=== PATIENT | female | born 1955 | race Caucasian/White ===

== ENCOUNTER 2019-10-05 17:31 | Inpatient (IN) ==
[2019-10-05] MEDS ORDERED: NS 1,000 ML IV ONE ×2 (18:30→18:37)
--- NOTE | 2019-10-05 18:52 | PROVIDER DOCUMENTATION ---
This chart was entered by Addie Daugherty Scribe, acting as scribe for Mandeep Singletary MD. HPI-General Adult - General Source: patient - History of Present Illness -Gen Adult Nature of Presenting Problems: 63 yowf presents w/family to er w/cc pt sent from Dr. Choudhary's office for hyponatremia. pt also c/o weakness, hoarseness, trouble ambulating and vomiting. pt has hx of pancreatic cancer w/mets to liver. last chemo was 09-22 and 2-. no diarrhea, fever or chills. Location of Pain/Injury: reports: generalized (weakness) Pain Radiation: reports: no radiation Quality of Pain: reports: none Severity: reports: moderate Onset/Duration: reports: other (today) Timing: reports: still present Context/Activities at Onset: reports: none Modifying Factors: improves with: other (weakness causes pt to be hoarse) Associated Symptoms: reports: vomiting, weakness, trouble walking, other (hyponatremia). denies: diarrhea, fever/chills Recently seen or treated by another doctor?: Yes <Mandeep Singletary - Last Filed: 10/05/19 18:52> <Devaughn Ireland - Last Filed: 10/05/19 19:56> - General Chief Complaint: Abnormal Lab[s] Stated Complaint: DR CHOUDHARY SENT PT Time Seen by Provider: 10/05/19 18:13 Allergies/Adverse Reactions: Patient Allergies Allergy/AdvReac Type Severity Reaction Status Date / Time No Known Allergies Allergy Unverified 07/03/15 19:02 Home Medications: Home Medication List Medication Instructions Recorded Confirmed Last Taken Type Albuterol Sulfate [Proair Hfa] 8.5 gm INH PRN PRN #1 [email or web address] 07/03/15 09/05/17 09/05/17 06:45 Rx Alprazolam 0.25 mg PO BID PRN 09/05/17 09/05/17 09/04/17 History Morphine Ir 15 mg PO DIRECTED PRN PRN 09/05/17 09/05/17 09/05/17 06:45 History Review of Systems - Adult - REVIEW OF SYSTEMS - ADULT Constitutional: reports: no symptoms reported. denies: chills, fever, night sweats Eyes: reports: no symptoms reported Ears, Nose, Mouth & Throat: reports: see HPI, hoarseness. denies: sinus problem, throat pain, throat swelling Cardiovascular: reports: no symptoms reported Respiratory: reports: no symptoms reported Gastrointestinal: reports: see HPI, vomiting. denies: diarrhea, difficulty swallowing, nausea Genitourinary: reports: no symptoms reported Musculoskeletal: reports: see HPI, muscle weakness (generalized), other (trouble ambulating) Integumentary: reports: no symptoms reported Neurological: reports: no symptoms reported Psychiatric: reports: no symptoms reported Endocrine: reports: no symptoms reported Hematologic/Lymphatic: reports: no symptoms reported Allergic/Immunologic: reports: no symptoms reported All Other Systems: Reviewed and Negative <Mandeep Singletary - Last Filed: 10/05/19 18:52> Past History - Adult - PAST MEDICAL HISTORY-ADULT Review of Records: reports: Nursing Assessment Review, Medications Reviewed, Social history reviewed & non-contributory. Major Childhood Illnesses: reports: denies history Cardiovascular: reports: denies history Respiratory: reports: asthma, bronchitis, COPD Gastrointestinal: reports: cancer (pancreatic w/mets to liver) Obstetrical/Gynecological: reports: denies history Genitourinary: reports: denies history Musculoskeletal: reports: denies history Neurological: reports: denies history Psychiatric: reports: denies history Endocrine/Immune: reports: denies history Other Conditions: reports: denies history - PRIOR SURGERIES/PROCEDURES Surgical/Procedure History: reports: appendectomy, cholecystectomy, hysterectomy , back/neck - PRIOR HOSPITALIZATIONS Prior Hospitalizations: reports: none - IMMUNIZATION STATUS Childhood Immunizations: See Nurse Assessment Flu Vaccine: See Nurse Assessment - FAMILY HISTORY Family History: reviewed, not pertinent - SOCIAL HISTORY Smoking: other (former smoker) Substance Use: none/never <Mandeep Singletary - Last Filed: 10/05/19 18:52> Physical Exam-General - PHYSICAL EXAM-ADULT Initial Vital Signs Reviewed: Yes - CONSTITUTIONAL General Appearance: alert, no apparent distress, cachetic. negative: anxious, lethargic, slow to respond - EYES Eyes: PERRL/EOMI, pale conjunctivae - HEAD, EARS, NOSE, MOUTH & THROAT HENMT: normocephalic/atraumatic, moist mucous membranes - NECK Neck: non-tender, full range of motion, supple, normal inspection - RESPIRATORY Respiratory: chest non-tender, lungs clear, normal breath sounds, other (pt has port rt parasternal). negative: crackles, rales, rhonchi - CARDIOVASCULAR Cardiovascular: normal peripheral pulses, regular rate, rhythm - GASTROINTESTINAL (ABDOMEN) Abdominal Exam: normal bowel sounds, distended, tenderness (RUQ on palp). negative: non tender, soft, guarding, rigid, rebound - MUSCULOSKELETAL Back Exam: normal inspection Extremity: normal range of motion, non-tender, no calf tenderness, normal capillary refill, pelvis stable, swelling (3-4+ nonpitting BLE). negative: normal inspection, deformity, erythema, inflammation - SKIN Integumentary: normal turgor, warm/dry, pallor (slight). negative: normal color, swelling, tenderness, warm - NEUROLOGIC Neurologic: grossly normal, no motor/sensory deficits - PSYCHIATRIC Psych/Mental Status: normal mood/affect, normal thought content, normal thought process, oriented x 3 <Mandeep Singletary - Last Filed: 10/05/19 18:52> Progress - PLAN OF CARE/RESULTS Progress/Plan/Lab Results: Vital Signs - 8 hr 10/05/19 17:45 Temperature 97.8 F Pulse Rate 122 H Respiratory Rate 18 Blood Pressure 113/76 O2 Sat by Pulse Oximetry 94 L Orders Category Date Time Status Cardiac Monitoring NOW Care 10/05/19 17:50 Active IV Insertion NOW Care 10/05/19 17:50 Active NEWS Score 2-4:Order NEWS Lactate Series NOW Care 10/05/19 17:49 Active Notify Provider of NEWS Score NOW Care 10/05/19 17:50 Active CHEST-1 VIEW [RAD] Stat Exams 10/05/19 17:[address] HEAD W/O CONTRAST [CT] Stat Exams 10/05/19 18:22 Ordered AMMONIA [CHEM] Stat Lab 10/05/19 18:22 Uncollected BLOOD CULTURE [BLDCUL] Stat Lab 10/05/19 17:50 Uncollected CBC WITH DIFF [HEME] Stat Lab 10/05/19 17:50 Uncollected CK PROFILE [SP CHEM] Stat Lab 10/05/19 17:50 Uncollected COMPREHENSIVE METABOLIC PANEL [CHEM] Stat Lab 10/05/19 17:50 Uncollected LACTATE, PLASMA [CHEM] Q3H Lab 10/05/19 18:00 Uncollected LACTATE, PLASMA [CHEM] Q3H Lab 10/05/19 21:00 Uncollected LACTATE, PLASMA [CHEM] Q3H Lab 10/06/19 00:00 Uncollected PROTIME WITH INR [COAG] Stat Lab 10/05/19 17:50 Uncollected PTT [COAG] Stat Lab 10/05/19 17:50 Uncollected TROPONIN T HIGH SENSITIVITY Stat Lab 10/05/19 17:50 Uncollected TYPE & SCREEN [BBK] Stat Lab 10/05/19 18:23 Uncollected URINALYSIS W/POSS RFLX CULT [URINALYSIS] Stat Lab 10/05/19 17:50 Uncollected O2 Per Protocol Stat Oth 10/05/19 17:50 Active - CHANGE OF SHIFT REPORT (ED Provider) 1 Report Given and Care Transferred to:: Dr. Ireland Time of Transfer: 19:00 Items Pending: Labs, XRAY Results, CT/MRI Results <Mandeep Singletary - Last Filed: 10/05/19 18:52> - PLAN OF CARE/RESULTS Progress/Plan/Lab Results: Vital Signs - 8 hr 10/05/19 17:45 Temperature 97.8 F Pulse Rate 122 H Respiratory Rate 18 Blood Pressure 113/76 O2 Sat by Pulse Oximetry 94 L Laboratory Results - last 24 hr 10/05/19 10/05/19 10/05/19 18:45 18:45 18:45 WBC RBC Hgb Hct MCV MCH MCHC RDW Std Deviation Plt Count MPV Immature Gran % (Auto) Neut % (Auto) Lymph % (Auto) [place] % (Auto) Eos % (Auto) Baso % (Auto) Immature Gran # (Auto) Neut # (Auto) Lymph # (Auto) [place] # (Auto) Eos # (Auto) Baso # (Auto) PT INR PTT (Actin FS) Sodium 124 L Potassium 3.9 Chloride 87 L Carbon Dioxide 24 L Anion Gap 13 BUN 22 Creatinine 0.9 Estimated GFR/1.73 m2 > 60 BUN/Creatinine Ratio 24 Glucose 131 H Calculated Osmolality 255 Calcium 7.7 L Total Bilirubin 2.72 H AST 37 H ALT 11 Alkaline Phosphatase 230 H Ammonia Creatine Kinase 50 Troponin T High Sens 14 Total Protein 4.7 L Albumin 2.1 L Globulin 2.6 Albumin/Globulin Ratio 0.8 Plasma Lactate 3.1 H Blood Type Antibody Screen 10/05/19 10/05/19 10/05/19 18:45 18:45 18:45 WBC 18.07 H RBC 3.51 L Hgb 9.9 L Hct 31.3 L MCV 89.2 MCH 28.2 MCHC 31.6 L RDW Std Deviation 17.3 H Plt Count 156 MPV 9.6 Immature Gran % (Auto) 0.8 H Neut % (Auto) 80.1 H Lymph % (Auto) 5.1 L [place] % (Auto) 13.8 H Eos % (Auto) 0.0 Baso % (Auto) 0.2 Immature Gran # (Auto) 0.14 H Neut # (Auto) 14.47 H Lymph # (Auto) 0.92 L [place] # (Auto) 2.50 H Eos # (Auto) 0.00 Baso # (Auto) 0.04 PT 24.2 H INR 2.11 PTT (Actin FS) 54.9 H Sodium Potassium Chloride Carbon Dioxide Anion Gap BUN Creatinine Estimated GFR/1.73 m2 BUN/Creatinine Ratio Glucose Calculated Osmolality Calcium Total Bilirubin AST ALT Alkaline Phosphatase Ammonia 61 H Creatine Kinase Troponin T High Sens Total Protein Albumin Globulin Albumin/Globulin Ratio Plasma Lactate Blood Type Antibody Screen 10/05/19 18:45 WBC RBC Hgb Hct MCV MCH MCHC RDW Std Deviation Plt Count MPV Immature Gran % (Auto) Neut % (Auto) Lymph % (Auto) [place] % (Auto) Eos % (Auto) Baso % (Auto) Immature Gran # (Auto) Neut # (Auto) Lymph # (Auto) [place] # (Auto) Eos # (Auto) Baso # (Auto) PT INR PTT (Actin FS) Sodium Potassium Chloride Carbon Dioxide Anion Gap BUN Creatinine Estimated GFR/1.73 m2 BUN/Creatinine Ratio Glucose Calculated Osmolality Calcium Total Bilirubin AST ALT Alkaline Phosphatase Ammonia Creatine Kinase Troponin T High Sens Total Protein Albumin Globulin Albumin/Globulin Ratio Plasma Lactate Blood Type O POSITIVE Antibody Screen NEGATIVE Orders Category Date Time Status Cardiac Monitoring NOW Care 10/05/19 17:50 Active IV Insertion NOW Care 10/05/19 17:50 Completed NEWS Score 2-4:Order NEWS Lactate Series NOW Care 10/05/19 17:49 Active Notify Provider of NEWS Score NOW Care 10/05/19 17:50 Active CHEST-1 VIEW [RAD] Stat Exams 10/05/19 17:[address] HEAD W/O CONTRAST [CT] Stat Exams 10/05/19 18:22 Completed AMMONIA [CHEM] Stat Lab 10/05/19 18:45 Completed BLOOD CULTURE [BLDCUL] Stat Lab 10/05/19 18:45 Results CBC WITH DIFF [HEME] Stat Lab 10/05/19 18:45 Completed CK PROFILE [SP CHEM] Stat Lab 10/05/19 18:45 Completed COMPREHENSIVE METABOLIC PANEL [CHEM] Stat Lab 10/05/19 18:45 Completed LACTATE, PLASMA [CHEM] Lab 10/05/19 21:00 Uncollected LACTATE, PLASMA [CHEM] Lab 10/06/19 00:00 Uncollected LACTATE, PLASMA [CHEM] Q3H Lab 10/05/19 18:45 Completed PROTIME WITH INR [COAG] Stat Lab 10/05/19 18:45 Completed PTT [COAG] Stat Lab 10/05/19 18:45 Completed TROPONIN T HIGH SENSITIVITY Stat Lab 10/05/19 18:45 Completed TYPE & SCREEN [BBK] Stat Lab 10/05/19 18:45 Completed URINALYSIS W/POSS RFLX CULT [URINALYSIS] Stat Lab 10/05/19 17:50 Uncollected 0.9% Sodium Chloride Inj [Ns] 1,000 ml Med 10/05/19 18:30 Discontinued IV 999 mls/hr 0.9% Sodium Chloride Inj [Ns] 1,000 ml Med 10/05/19 18:37 Discontinued IV 999 mls/hr Lactulose Med 10/05/19 19:13 Discontinued 30 ml PO NOW ONE Levofloxacin 500 mg/D5w [Levaquin 500 mg/D5w] Med 10/05/19 19:15 Active 500 mg in 100 ml IV NOW O2 Per Protocol Stat Oth 10/05/19 17:50 Active Result Diagrams: 10/05/19 18:45 10/05/19 18:45 - CONSULTS/PCP/HOSPITALIST Notification #1 *Consult/PCP/Hospitalist*: Dr Hernandez Time Discussed: 19:52 Consult Disposition: Will see in ED, Admit <Devaughn Ireland - Last Filed: 10/05/19 19:56> Departure <Mandeep Singletary - Last Filed: 10/05/19 18:52> - Departure Date of Disposition Decision: 10/05/19 Time of Disposition Decision: 19:50 Certified Medical Emergency: Emergent - Critical Care Note This patient required my direct & personal management of CC.: No <Devaughn Ireland - Last Filed: 10/05/19 19:56> - Departure DIAGNOSIS: Pneumonia, Hyponatremia, Sepsis, Anemia Disposition: ADMITTED INPATIENT 09 Condition: Fair Referrals and Follow-Ups: Julien Mckeon MD [Primary Care Provider] - Attestation - Physician/ JUANITO Attestation Patient care was provided by Advanced Practice Provider:: No The physician spent face to face time with patient:: Yes Advanced Practice Provider documentation review:: Supervising physician onsite and consulted in the evaluation and care of this patient. The physician did have a face to face encounter with the patient. <Mandeep Singletary - Last Filed: 10/05/19 18:52> Sepsis: Tissue Perfusion Assmt - Physical Exam Assessment Date: 10/05/19 Time Assessment Initialized: 19:52 Vital Signs: Last Vital Signs Temp 97.8 F 10/05/19 17:45 Pulse 122 H 10/05/19 17:45 Resp 18 10/05/19 17:45 BP 113/76 10/05/19 17:45 Pulse Ox 94 L 10/05/19 17:45 Height 5 ft 6 in Weight 72.575 kg 10/05/19 19:52 see nurses note. Lung Sounds: lungs clear Heart Sounds: Regular Capillary Refill Time: Less Than 2 Seconds Peripheral Pulse Evaluation: radial (R): 4+, radial (L): 4+, dorsalis-pedis (R): 4+, dorsalis-pedis (L): 4+, posterior tibialis (R): 4+, posterior tibialis (L): 4+ Skin Exam: pink - Alternative Fluid Bolus Bolus Option: Alternative Fluid Resuscitation Bolus for morbidly obese patients with a BMI >30, Refer to [place] Body Weight Chart for Reference. Is patient's BMI >30?: No Fluid Bolus dosed using the [place] Body Weight Chart: No - Impression Impression: Tissue Perfusion Adequate - Plan Plan: See Orders <Devaughn Ireland - Last Filed: 10/05/19 19:56> This chart was documented by the indicated scribe, (Addie Daugherty Scribje) and accurately reflects the services I performed and decisions made by ky, Mandeep Singletary MD, as attested by the provider's signature.
[2019-10-05 19:01] LABS: BASO# 0.04 X1000 (0.0-0.2); BASO% 0.2 % (0.0-0.8); HEMATOCRIT 31.3 % (37.0-47.0); HEMOGLOBIN 9.9 g/dL (12.0-16.0); IMM GRAN# 0.14 X1000 (0.0-0.04); IMM GRAN% 0.8 % (0.0-0.5); LYMPH# 0.92 X1000 (1.2-3.4); LYMPH% 5.1 % (20.5-51.1); MCH 28.2 PG (27-31); MCHC 31.6 g/dL (33-37); MCV 89.2 FL (81-99); MONO% 13.8 % (1.7-9.3); MPV 9.6 FL (7.4-10.4); NEUT# 14.47 X1000 (1.4-6.5); NEUT% 80.1 % (42.2-75.2); PLT 156 X1000 (130-400); RBC 3.51 XMIL (4.2-5.4); RDW 17.3 % (11.5-14.5); WBC 18.07 X1000 (4.8-10.8)
--- NOTE | 2019-10-05 19:05 | Diag Imaging Result Doc PS360 ---
EXAM: CT HEAD W/O CONTRAST INDICATION: ams TECHNIQUE: This exam was performed using automated exposure control, adjustment of mA or kV according to patient size, and/or use of iterative reconstruction technique. COMPARISON: None. FINDINGS: There is subtle patchy low attenuation in the periventricular and subcortical white matter suggesting mild microangiopathy. There is no definite acute infarct given the limited sensitivity of CT versus MRI. There is no discrete intracranial mass, mass effect, or intracranial hemorrhage. The surrounding soft tissues and bony structures are essentially unremarkable. IMPRESSION: Very mild chronic appearing white matter changes. No definite acute intracranial pathology by CT. Electronically signed by Julien Daugherty 10/05/2019 7:03 PM
--- NOTE | 2019-10-05 19:10 | Diag Imaging Result Doc PS360 ---
EXAM: CHEST-1 VIEW INDICATION: sob TECHNIQUE: One view COMPARISON: 05/15/2018 FINDINGS: Inspiration is suboptimal. There is a stable right chest port. There is bandlike opacity seen in the right lower lung zone suggesting atelectasis versus pneumonia. There is no discrete pleural fluid collection or pneumothorax. The cardiomediastinal silhouette and central vasculature are grossly unremarkable. IMPRESSION: Bandlike opacity at the right lower lung zone suggesting atelectasis +/- pneumonia. Electronically signed by Julien Daugherty 10/05/2019 7:08 PM
[2019-10-05 19:11] LABS: INR 2.11; PROTIME 24.2 Seconds (11.0-16.0); PTT 54.9 Seconds (22.3-41.8)
[2019-10-05] MEDS ORDERED: LACTULOSE PO ONE (19:13)
[2019-10-05] MEDS ORDERED: LEVAQUIN 500 MG/D5W 500 MG/100 ML IVPB IV ONE (19:15)
[2019-10-05 19:35] LABS: ESTIMATED GFR > 60
[2019-10-05 19:40] LABS: AGAP 13; ALB/GLOB RATIO 0.8; ALBUMIN 2.1 g/dL (3.5-5.0); ALKALINE PHOSPHATASE 230 U/L (32-104); BUN 22 mg/dL (8-22); CALCIUM 7.7 mg/dL (8.8-10.2); CHLORIDE 87 mmol/L (98-107); CK PROFILE 50 U/L (24-173); COSMO 255; CREATININE 0.9 mg/dL (0.5-0.9); GLUCOSE 131 mg/dL (70-104); GOT 37 U/L (10-30); GPT 11 U/L (10-36); POTASSIUM 3.9 mmol/L (3.5-5.1); SODIUM 124 mmol/L (136-145); TCO2 24 mmol/L (25-35); TOTAL BILIRUBIN 2.72 mg/dL (0.20-1.00); TOTAL PROTEIN 4.7 g/dL (6.3-8.3)
[2019-10-05] MEDS ORDERED: ZOSYN 3.375 GM in NS 50 ML IV ONE (19:55)
--- NOTE | 2019-10-05 20:54 | HEMO/ONC CONSULTATION ---
DATE: 10/05/2019 REASON FOR CONSULTATION: This is a known patient of ours for the treatment of metastatic pancreatic carcinoma. HISTORY OF PRESENT ILLNESS: The patient's called us from home today, stating that the patient has not eaten in a week and that she is no longer able to walk without assistance, that she has severe weakness, nausea and vomiting. He brought the patient into the office. Her workup found that she was extremely hyponatremic with a sodium of 120. Bilirubin was 3.2. This patient was extremely weak, slightly jaundiced, and very dehydrated. The patient was given 1 L of IV fluids and then sent to the hospital for further management. Upon arrival to the ER, she was found to have an elevated white count, a sodium level of 124, and plasma lactate of 3.1. The patient denies any other symptoms at this time. PAST MEDICAL HISTORY: 1. GERD. 2. COPD. 3. Metastatic pancreatic cancer. PAST SURGICAL HISTORY: 1. Appendectomy. 2. Ectopic . 3. Partial hysterectomy. 4. Oophorectomy x2. 5. Partial thyroidectomy. 6. C-spine fusion. 7. Cholecystectomy. ALLERGIES: No known drug allergies. MEDICATIONS: 1. Morphine 30 IR. 2. Xanax 0.25. 3. Morphine ER 30. 4. Lomotil 2.5. 5. Neurontin 100 mg. 6. Caltrate 600+D 600. 7. Potassium chloride. 8. Magnesium glycinate. 9. Spironolactone. REVIEW OF SYSTEMS: The patient complains of a significant amount of weakness, anorexia, general unwell feeling, nausea and vomiting, and shortness of breath. PHYSICAL EXAMINATION: Vital Signs: Temperature 97.8 degrees, pulse rate 122, respiratory rate 18, blood pressure 113/76, O2 saturation 94% on room air. She is in 8/10 pain. General: The patient appears uncomfortable. She is in no acute distress. HEENT: Sclerae anicteric. PERRLA. Oral mucosa dry. Cardiovascular: Tachycardic rate and rhythm. Normal S1, S2. Respiratory: Lung sounds are clear to auscultation. Normal respiratory effort. Gastrointestinal: Left upper quadrant pain. General tenderness all over. Abdomen: Soft and nondistended. Bowel sounds are active. Neurological: Alert and oriented x3. No focal motor deficits. Extremities: No lower extremity edema noted. Lymphatic: No enlarged lymph nodes noted. LABORATORY: WBCs 18.07, hemoglobin 9.9, hematocrit 31.3, platelet count 156,000. Sodium 124, creatinine 0.9, calcium 7.7, potassium 3.9, total bilirubin 2.72, AST 37, ALT 11, alkaline phosphatase 230, ammonia 61, plasma lactate 3.1. RADIOLOGY: Head CT: Very mild chronic appearing white matter changes. No acute intracranial pathology. Chest x-ray: Bandlike opacity at the right lower lung zone, suggesting atelectasis plus or minus pneumonia. ASSESSMENT AND PLAN: 1. Metastatic pancreatic adenocarcinoma. The patient has progressed through several treatment regimens. She is currently on Taxotere. First dose was given 08/24/2019. Last dose was given 09/22/2019. Her doses are 2 weeks on, 1 week off. 2. Chemotherapy-induced anemia. The patient is on Procrit protocol in the office. Her last iron profile was adequate. Transfuse as needed for a hemoglobin less than 8. 3. Hypokalemia and hypomagnesemia. The patient has had chronic low potassium and low magnesium. She has received intravenous doses with almost every cycle. She continues to take both orally as well. 4. Pain management. The patient's pain is being controlled with MS IR. She should continue the same while hospitalized. 5. Dehydration and hyponatremia. Management per hospitalist. IVF's. 6. Weakness and deconditioning. The patient needs protein shakes, antiemetics, and encourage to eat. She also needs to get out of bed 3 times a day. She has been encouraged to try and get up to walk. Consult Physical Therapy as necessary. 7. Deep venous thrombosis prophylaxis. The patient will need sequential compression devices or pneumatic devices while in the hospital. Dictated by ANA Wheatley for Fritz Norris MD Metastatic pancreatic cancer on chemotherapy. Has gone through multiple lines of therapy. From cancer standpoint, her prognosis is poor. Has not been eating over the last week. Noted to have severe hyponatremia of 120 in the clinic. Admitted for further management. Fritz Norris MD cc: Fritz Norris MD [facility]
[2019-10-05 21:42] LABS: BASO# 0.03 X1000 (0.0-0.2); BASO% 0.2 % (0.0-0.8); EOS# 0.03 X1000 (0.0-0.7); EOS% 0.2 % (0.0-10.0); HEMATOCRIT 29.7 % (37.0-47.0); HEMOGLOBIN 9.5 g/dL (12.0-16.0); IMM GRAN# 0.11 X1000 (0.0-0.04); IMM GRAN% 0.7 % (0.0-0.5); LYMPH# 1.02 X1000 (1.2-3.4); LYMPH% 6.3 % (20.5-51.1); MCH 28.4 PG (27-31); MCV 88.9 FL (81-99); MONO# 2.26 X1000 (0.11-0.59); MPV 9.6 FL (7.4-10.4); NEUT# 12.72 X1000 (1.4-6.5); NEUT% 78.6 % (42.2-75.2); PLT 174 X1000 (130-400); RBC 3.34 XMIL (4.2-5.4); RDW 17.2 % (11.5-14.5); WBC 16.17 X1000 (4.8-10.8)
[2019-10-05] MEDS: NS 1,000 ML IV SCH (21:45)
[2019-10-05] MEDS ORDERED: ZOFRAN IV PRN (21:45)
[2019-10-05 21:47] LABS: INR 2.08; PROTIME 23.9 Seconds (11.0-16.0)
[2019-10-05 21:48] LABS: PTT 40.3 Seconds (22.3-41.8)
[2019-10-05 22:23] LABS: ALBUMIN 2.2 g/dL (3.5-5.0); CALCIUM 7.5 mg/dL (8.8-10.2); POTASSIUM 3.9 mmol/L (3.5-5.1); TOTAL BILIRUBIN 2.79 mg/dL (0.20-1.00); TOTAL PROTEIN 4.4 g/dL (6.3-8.3)
[2019-10-05 22:24] LABS: URINE SOURCE CLEAN CATCH
[2019-10-05 22:31] LABS: BILIRUBIN URINE SMALL (NEGATIVE); BLOOD URINE NEGATIVE (NEGATIVE); COLOR YELLOW; GLUCOSE URINE NEGATIVE (NEGATIVE); KETONE URINE NEGATIVE (NEGATIVE); LEUKOCYTES URINE NEGATIVE (NEGATIVE); NITRITE URINE NEGATIVE (NEGATIVE); PROTEIN URINE TRACE mg/dL (NEGATIVE); SP GRAVITY URINE 1.022; TURBIDITY URINE CLEAR (CLEAR); UR EPITHELIAL CELLS <10 /HPF (<10); URINE BACTERIA NEGATIVE /HPF; URINE RBC <10 /HPF (<10); URINE WBC <10 /HPF (<10); UROBILINOGEN URINE 4 mg/dL (NORMAL)
--- NOTE | 2019-10-05 23:13 | HISTORY AND PHYSICAL ---
PRIMARY CARE PROVIDER: Julien Mckeon MD CHIEF COMPLAINT: Weakness, not feeling well. HISTORY OF PRESENTING ILLNESS: A 63-year-old female with a history of metastatic pancreatic cancer, COPD and GERD, who was sent from her oncologist's office due to possible dehydration. She was given IV fluids initially. She was seen in the ED and she had imaging done, which did show a possibility of pneumonia. Due to these presenting symptoms and findings, she will require admission for further management. At the time of my examination, the patient denied any headache, fever, chills, chest pain or any weight changes, but complained of weakness and not feeling well. PAST MEDICAL HISTORY: Includes metastatic pancreatic cancer, COPD, GERD. PAST SURGICAL HISTORY: Hysterectomy, appendectomy, cholecystectomy, cervical fusion, thyroidectomy. ALLERGIES: No known drug allergies. CURRENT MEDICATIONS: Albuterol inhaler t.i.d., alprazolam 0.25 mg p.o. daily, morphine IR 50 mg p.o. b.i.d. SOCIAL HISTORY: No history of smoking, alcohol or illicit drug use. FAMILY HISTORY: No history of coronary disease. REVIEW OF SYSTEMS: Fourteen-point review of systems is as in HPI. Other systems negative. PHYSICAL EXAMINATION: GENERAL: Cooperative, friendly female. She is resting more comfortably now. VITAL SIGNS: Temperature 97.8 degrees, pulse 122, respiration 18, blood pressure 113/76. HEENT: Atraumatic, normocephalic. Extraocular movements intact. PERRLA. NECK: No masses. CHEST: Bibasilar rales. CARDIOVASCULAR: Regular rate and rhythm. ABDOMEN: Soft. Positive bowel sounds. EXTREMITIES: No edema. NEUROLOGIC: She is awake, alert and oriented x3. GENITOURINARY: No bladder distention. SKIN: Warm. LABORATORY DATA: Sodium 122, potassium 3.9, chloride 85, CO2 is 26, BUN 22, creatinine 1.0, glucose 124. Plasma lactate 2.9. WBC 16.17, hemoglobin 9.5, hematocrit 29.7, platelets 174,000. DIAGNOSTIC DATA: Chest x-ray: Opacity in right lower lung zone suggesting pneumonia. Head CT: Chronic white matter changes. ASSESSMENT: A 63-year-old female with a history of metastatic pancreatic cancer, chronic obstructive pulmonary disease and gastroesophageal reflux disease, who presented to the emergency department due to having persistent worsening weakness. She was found to be dehydrated by her oncologist and sent to the emergency department. She was seen in the emergency department. She had imaging done which raised suspicion for pneumonia, and subsequently she will require admission for further management. 1. Probable pneumonia. 2. Dehydration. 3. Metastatic pancreatic cancer. 4. Hyponatremia. PLAN: 1. We will admit the patient to the medical floor with telemetry. 2. We will check blood cultures. Start the patient on IV antibiotics. 3. We will consult her oncologist. 4. Continue with IV fluids. 5. We will monitor electrolytes including sodium and potassium, and optimize it. 6. Put patient on DVT prophylaxis with SCDs. 7. We will continue to follow, reassess and make further recommendations based on the patient's clinical course. cc: Arsenio Hernandez MD
[2019-10-06] MEDS: ZOSYN 3.375 GM in NS 50 ML IV SCH ×4 (02:00→20:07)
[2019-10-06 05:55] LABS: BASO# 0.04 X1000 (0.0-0.2); BASO% 0.2 % (0.0-0.8); EOS# 0.03 X1000 (0.0-0.7); EOS% 0.2 % (0.0-10.0); HEMATOCRIT 30.1 % (37.0-47.0); HEMOGLOBIN 9.4 g/dL (12.0-16.0); IMM GRAN% 0.6 % (0.0-0.5); LYMPH# 1.01 X1000 (1.2-3.4); LYMPH% 6.1 % (20.5-51.1); MCH 28.1 PG (27-31); MCHC 31.2 g/dL (33-37); MCV 89.9 FL (81-99); MONO# 2.23 X1000 (0.11-0.59); MONO% 13.5 % (1.7-9.3); NEUT# 13.09 X1000 (1.4-6.5); NEUT% 79.4 % (42.2-75.2); PLT 140 X1000 (130-400); RBC 3.35 XMIL (4.2-5.4); RDW 17.8 % (11.5-14.5)
[2019-10-06 06:38] LABS: ALB/GLOB RATIO 0.8; CALCIUM 7.3 mg/dL (8.8-10.2); POTASSIUM 3.9 mmol/L (3.5-5.1); TOTAL BILIRUBIN 2.74 mg/dL (0.20-1.00); TOTAL PROTEIN 4.4 g/dL (6.3-8.3)
[2019-10-06] MEDS: NS 1,000 ML IV SCH ×2 (11:52→21:47)
--- NOTE | 2019-10-06 13:39 | HEMO/ONC PROGRESS NOTE ---
DATE: 10/06/2019 SUBJECTIVE: Ms. Reese remains in an ER room on an ER stretcher. She did have a difficult night's sleep due to the normal chaos of an emergency department. She does not really feel any better. She has continued to be very weak. She is receiving IV fluids. She continues to have generalized pain and weakness with nausea. She is continuing to wait on a private bed. OBJECTIVE: Vital Signs: Temperature 98.4 degrees, pulse rate 116, respiratory rate 14, blood pressure 125/78, O2 saturation 96% on room air. General: On physical examination, the patient appears to not feel well. She is slightly jaundiced and cachetic, but in no acute distress. HEENT: Sclerae anicteric. Conjunctivae pale. PERRLA. Oral mucosa is dry. Cardiovascular: Normal S1, S2. Heart rate and rhythm tachycardic. Respiratory: Lung sounds were clear to auscultation. Normal respiratory effort. Abdomen: Soft, generalized tenderness all over, slightly distended. Extremities: No lower extremity edema. Neurological: Alert and oriented x3. Skin: Slightly jaundiced. LABORATORY: WBCs 16.50, hemoglobin 9.4, hematocrit 30.1, platelet count 140,000. Sodium 127, creatinine 1.0, calcium 7.3, total bilirubin at 2.74, plasma lactate 2.6. ASSESSMENT AND PLAN: 1. Metastatic pancreatic adenocarcinoma, currently on chemotherapy with Taxotere. Last dose given on 09/22/2019. Her prognosis is poor. She has been declining over the last week. We will continue to monitor. 2. Dehydration and hyponatremia. Continue management per the hospitalist. Continue the patient on intravenous fluids. 3. Chemotherapy-induced anemia. The patient is on Procrit protocol in the ulcers. Last iron profile was adequate. Transfuse as needed for hemoglobin of less than 8. 4. Hypokalemia and hypomagnesemia. The patient chronically has low potassium and low magnesium we replaced often in the office. She is to monitor both and to continue oral supplements. 5. Pain management. The patient's pain is currently controlled with MSIR 30 mg. Continue pain management while hospitalized. 6. Weakness and deconditioning. The patient needs to be off her protein shakes, antiemetics and encouraged to eat. She also needs to get out of bed 3 times a day. Consult physical therapy if needed. 7. Deep venous thrombosis prophylaxis. The patient needs on sequential compression devices to get out of the bed 3 times a day while in the hospital. Dictated by ANA Wheatley for Fritz Norris MD Rapid decline last 1 week. Admitted with pneumonia and hyponatremia. Continue antibiotics and current management. Has not made much progress overnight. Fritz Norris MD cc: Fritz Norris MD [facility]
[2019-10-06] MEDS ORDERED: XANAX PO PRN (15:33)
[2019-10-06] MEDS ORDERED: TYLENOL PO PRN (16:20)
--- NOTE | 2019-10-06 16:38 | PROGRESS NOTE ---
DATE: 10/06/2019 SUBJECTIVE: She is lying in bed, kind of weak, tired. She says she feels a little bit better, but I am not entirely sure how much better she feels. OBJECTIVE: Blood pressure 124/73, heart rate 115, respiratory rate 18, temperature 97.6 degrees.Cardiovascular: Regular rate and rhythm. Pulmonary: Bilateral breath, sounds clear to auscultation. GI: Soft, nontender, nondistended. Bowel sounds are positive. LABORATORY: Count 16, hemoglobin 9 and hematocrit 30, platelets of 140,000. Sodium is 127. T bilirubin 2.74. Lactate mildly elevated. PROBLEM LIST: 1. Pneumonia versus atelectasis. Will continue empiric antibiotics and follow closely. 2. Hyponatremia with possible dehydration. We will check urine electrolytes. She is really not on anything that would cause hyponatremia and it is improving with just normal saline at a acceptable rate, so we will continue treatment. 3. Pancreatic cancer, which I believe is metastatic, currently on Taxotere. Prognosis is poor per Dr. Norris. We will continue to follow. Continue her pain control and monitor. DISPOSITION: Pending her clinical status. She is high risk for DVT so she will need prophylaxis. cc: Saroj Reich MD
[2019-10-06] MEDS: MS CONTIN PO SCH (21:46)
[2019-10-07] MEDS: ZOSYN 3.375 GM in NS 50 ML IV SCH ×4 (02:43→21:03)
[2019-10-07] MEDS: LOVENOX SUBQ SCH (06:22)
[2019-10-07 07:57] LABS: BASO# 0.05 X1000 (0.0-0.2); BASO% 0.2 % (0.0-0.8); EOS# 0.01 X1000 (0.0-0.7); HEMATOCRIT 33.4 % (37.0-47.0); HEMOGLOBIN 10.4 g/dL (12.0-16.0); IMM GRAN# 0.22 X1000 (0.0-0.04); LYMPH# 1.28 X1000 (1.2-3.4); LYMPH% 5.8 % (20.5-51.1); MCH 28.2 PG (27-31); MCHC 31.1 g/dL (33-37); MCV 90.5 FL (81-99); MONO# 2.77 X1000 (0.11-0.59); MONO% 12.5 % (1.7-9.3); MPV 9.1 FL (7.4-10.4); NEUT# 17.88 X1000 (1.4-6.5); NEUT% 80.5 % (42.2-75.2); PLT 139 X1000 (130-400); RBC 3.69 XMIL (4.2-5.4); RDW 18.5 % (11.5-14.5); WBC 22.21 X1000 (4.8-10.8)
[2019-10-07 08:16] LABS: ALB/GLOB RATIO 0.6; ALBUMIN 1.9 g/dL (3.5-5.0); DIRECT BILIRUBIN 1.6 mg/dL (0.00-0.20); TOTAL BILIRUBIN 2.73 mg/dL (0.20-1.00); TOTAL PROTEIN 5.1 g/dL (6.3-8.3)
[2019-10-07 08:21] LABS: AGAP 11; BUN 21 mg/dL (8-22); CHLORIDE 94 mmol/L (98-107); COSMO 255; CREATININE 0.8 mg/dL (0.5-0.9); ESTIMATED GFR > 60; GLUCOSE 80 mg/dL (70-104); MAGNESIUM 1.7 mg/dL (1.5-2.7); POTASSIUM 3.9 mmol/L (3.5-5.1); SODIUM 126 mmol/L (136-145); TCO2 21 mmol/L (25-35)
[2019-10-07 08:47] LABS: ANISOCYTOSIS 1+; HYPOCHROM 1+; LYMPHS 7 % (21-51); MONO 15 % (1-9); POLYCHROM 1+; SEGS 78 % (42-75)
[2019-10-07 08:48] LABS: POIKILOCYTOSIS 1+
[2019-10-07] MEDS: KLOR-CON PO SCH (09:28)
[2019-10-07] MEDS: MS CONTIN PO SCH ×2 (09:28→22:31)
[2019-10-07] MEDS: MAG-OX PO SCH (09:29)
[2019-10-07] MEDS ORDERED: DUONEB (A & A) INH PRN (10:44)
[2019-10-07] MEDS: DUONEB (A & A) INH SCH ×2 (11:47→16:00)
--- NOTE | 2019-10-07 12:59 | HEMO/ONC PROGRESS NOTE ---
DATE: 10/07/2019 SUBJECTIVE: Ms. Reese had a better night's sleep, although she does not appear to be feeling much better, she states maybe just a little bit. She has no appetite. She is continuing to have generalized abdominal pain and weakness. She states she is unable to walk still without assistance. She feels very tired. OBJECTIVE: Vital Signs: Temperature 97.7 degrees, pulse rate 126, respiratory rate 18, blood pressure 135/91, O2 saturation 99% on nasal cannula at 2 L. She is in 7/10 generalized abdominal pain. Physical Examination: General: This is a chronically ill-appearing female in no acute distress. She has alopecia. Cardiovascular: Normal S1, S2. Heart rate and rhythm are regular. Respiratory: Lung sounds are clear to auscultation. Gastrointestinal: Abdomen is soft, slightly distended. Tender to palpation all over. Bowel sounds are present. Neurological: Alert and oriented x3. Extremities: There is +1 pitting edema noted to lower extremities. Laboratory: WBCs 22.21, hemoglobin 10.4, hematocrit 33.4, platelet count 139,000. Sodium 126. Total bilirubin 2.73, direct bilirubin 1.6, AST 41, ALT 11, alkaline phosphatase 252, albumin 1.9. ASSESSMENT AND PLAN: 1. Metastatic pancreatic adenocarcinoma, currently on chemotherapy with Taxotere. The patient's last dose was 09/22/2019. The patient has been declining over the last week. She is eating and drinking very little. She has become too weak to walk on her own. She has generalized abdominal pain. Her prognosis is poor. 2. Hyponatremia and dehydration. Patient's sodium is continuing to be very low. Continue to treat with normal saline and per medical management. 3. Pneumonia versus atelectasis. The patient is on empiric antibiotics. Continue medical management. 4. Chemotherapy-induced anemia. The patient is on Procrit protocol in the office. Last iron profile was adequate. Transfuse as needed for hemoglobin of less than 8. 5. Hypokalemia and hypomagnesemia. The patient has been chronically low on potassium and magnesium that we often replace with intravenous in the office. She is also on daily oral supplements. Continue to monitor and replete as necessary. 6. Pain management. The patient's pain is currently controlled with MSIR 30 mg. Continue pain management while in the hospital. 7. Weakness and deconditioning. The patient needs to continue protein shakes, antiemetics as requested, and encouraged to eat. Offer her snacks as necessary. She also needs to get out of bed 3 times a day and possibly a physical therapy consult. 8. Deep venous thrombosis prophylaxis. The patient should have on sequential compression devices as well as getting out of the bed. She is on Lovenox daily. Dictated by ANA Wheatley for Fritz Norris MD cc: Fritz Norris MD
[2019-10-07] MEDS ORDERED: LASIX IV SCH (16:30)
--- NOTE | 2019-10-07 16:43 | Diag Imaging Result Doc PS360 ---
CHEST-PORTABLE - 10/07/2019 INDICATION: hypoxia COMPARISON: 10/05/2019 FINDINGS: Lung volumes are lower. There is worsening opacification of the right lung base, nonspecific. This indicates increasing infiltrate or atelectasis. Stable mild infiltrate or atelectasis in the left lower lobe. Heart size remains normal. Stable right chest port. IMPRESSION: Lower lung volumes. Worsening opacification of the right lung base. Electronically signed by Melchor Caballero 10/07/2019 4:41 PM
[2019-10-07 16:58] LABS: URINE SOURCE CATH
[2019-10-07] MEDS: MORPHINE IR PO PRN (17:01)
[2019-10-07 17:05] LABS: ALLEN TEST YES; BE -4.2 mmoll (-3.0-3.0); BLOOD TYPE ARTERIAL; HCO3-(ACT) 21.6 mmoll (20.0-26.0); METHB 1.2 % (0.0-1.5); O2(CT) 15.1 mL/dL (15.0-23.0); O2HB 95.3 % (95.0-99.0); PCO2(98.6) 32 mmHg (35-45); PO2(98.6) 92 mmHg (60-100); SAMPLE BLOOD; SAO2 98.2 % (95.0-100.0); THB 11.2 g/dL (11.5-17.4)
[2019-10-07 17:08] LABS: BILIRUBIN URINE NEGATIVE (NEGATIVE); BLOOD URINE NEGATIVE (NEGATIVE); COLOR YELLOW; GLUCOSE URINE NEGATIVE (NEGATIVE); KETONE URINE NEGATIVE (NEGATIVE); LEUKOCYTES URINE NEGATIVE (NEGATIVE); NITRITE URINE NEGATIVE (NEGATIVE); PROTEIN URINE TRACE mg/dL (NEGATIVE); SP GRAVITY URINE 1.026; TURBIDITY URINE CLEAR (CLEAR); UR EPITHELIAL CELLS <10 /HPF (<10); URINE BACTERIA NEGATIVE /HPF; URINE RBC <10 /HPF (<10); URINE WBC <10 /HPF (<10); UROBILINOGEN URINE NORMAL (NORMAL)
[2019-10-07 17:23] LABS: MODALITY CANNULA
[2019-10-07] MEDS ORDERED: NS 1,000 ML IV ONE (17:34)
--- NOTE | 2019-10-07 18:16 | PROGRESS NOTE ---
DATE: 10/07/2019 SUBJECTIVE: She kind of got worse shortness of breath today, and more coughing. She has become progressively tachycardic although she has pretty much been tachycardic this whole time. OBJECTIVE: Vital Signs: Blood pressure 130/88, heart rate 135, respiratory rate 18, and temperature 97.4 degrees. Cardiovascular: Regular rate and rhythm. Pulmonary: Bilateral breath sounds. Clear to auscultation. GI: Soft, nontender, and nondistended. Bowel sounds are positive. LAB[place]ATORY DATA: [place] [address], hemoglobin and hematocrit 10 and 33, and platelets 139,000. A pH 7.43, pCO2 32, and PaO2 92. Sodium 126, total bilirubin 2.7, and alkaline phosphatase 252. Urine sodium is 10. PROBLEM LIST: Right lower lobe pneumonia. She is on decent antibiotics. She is on piperacillin. I guess I am going to add vancomycin, probably avoid Zyvox because she has had chemo, but she is worse. Her heart rate is worse. I am going to work on pulmonary toilet. We will get a pulmonary consult. I am going to move her to the [facility] just to kind of see what is going on because I do not know. It is not clear that she has other issues. I am going to give her some fluids because her lactate is elevated. It does not clearly look like she has got heart failure. I will have a low threshold to do a CT just to see if there is a PE. She is at risk for PE. She is on DVT prophylaxis, but she has PE so we will continue to monitor disposition. cc: Saroj Reich MD
--- NOTE | 2019-10-07 19:08 | Diag Imaging Result Doc PS360 ---
CT ANGIOGRM PULMONARY ARTERIES - 10/07/2019 INDICATION: hypoxia, tachycardia TECHNIQUE: Axial CT images were obtained after administering intravenous contrast. Coronal MIP images were generated. COMPARISON: 08/16/2019 FINDINGS: There is a new moderate right pleural effusion and small left pleural effusion. There is diffuse wall thickening of the esophagus which is somewhat fluid-filled. There is mild ascites. Stable severely abnormal liver largely replaced by multiple metastases. Normal spleen size. There is cardiomegaly. No pulmonary embolism. There is some patchy atelectasis in the lung bases. There is complete collapse of the right lower lobe due to the effusion. There is also partial collapse of the left lower lobe. There are bilateral breast implants. There is a right chest port in good position. Bones are intact. Moderate body wall edema. IMPRESSION: Negative for pulmonary embolism. Moderate right and small left pleural effusion. Ascites. Diffuse esophagitis. This exam was performed using automated exposure control, adjustment of mA or kV according to patient size, and/or use of iterative reconstruction technique Electronically signed by Melchor Caballero 10/07/2019 7:06 PM
[2019-10-07] MEDS ORDERED: VANCOMYCIN IV PER PHARMACY MISC SCH (20:00)
[2019-10-07] MEDS ORDERED: VANCOMYCIN 2 GM in NS 500 ML IV ONE (22:00)
[2019-10-07] MEDS: XOPENEX NEB INH SCH (22:31)
[2019-10-08] MEDS: ZOSYN 3.375 GM in NS 50 ML IV SCH ×2 (01:43→08:37)
[2019-10-08] MEDS: MORPHINE IR PO PRN (02:31)
[2019-10-08] MEDS ORDERED: BLISTEX MEDICATED BERRY LIP BALM TOP PRN (02:53)
[2019-10-08] MEDS: LOVENOX SUBQ SCH (06:27)
[2019-10-08 07:04] LABS: BASO# 0.06 X1000 (0.0-0.2); BASO% 0.2 % (0.0-0.8); HEMATOCRIT 34.1 % (37.0-47.0); HEMOGLOBIN 10.6 g/dL (12.0-16.0); IMM GRAN# 0.29 X1000 (0.0-0.04); IMM GRAN% 1.1 % (0.0-0.5); LYMPH# 0.96 X1000 (1.2-3.4); LYMPH% 3.8 % (20.5-51.1); MCH 28.3 PG (27-31); MCHC 31.1 g/dL (33-37); MCV 90.9 FL (81-99); MONO# 2.08 X1000 (0.11-0.59); MONO% 8.1 % (1.7-9.3); MPV 9.4 FL (7.4-10.4); NEUT# 22.21 X1000 (1.4-6.5); NEUT% 86.8 % (42.2-75.2); PLT 146 X1000 (130-400); RBC 3.75 XMIL (4.2-5.4); RDW 18.7 % (11.5-14.5)
[2019-10-08 07:33] LABS: CALCIUM 8.2 mg/dL (8.8-10.2); CREATININE 1.1 mg/dL (0.5-0.9); MAGNESIUM 1.6 mg/dL (1.5-2.7)
[2019-10-08] MEDS: KLOR-CON PO SCH (08:36)
[2019-10-08] MEDS ORDERED: VITAMIN K SUBQ ONE (08:37)
[2019-10-08] MEDS: MAG-OX PO SCH (08:37)
[2019-10-08] MEDS: MS CONTIN PO SCH (09:07)
[2019-10-08] MEDS ORDERED: MORPHINE IR PO PRN (09:56)
[2019-10-08] MEDS ORDERED: PROTONIX IV SCH (10:00)
[2019-10-08] MEDS ORDERED: SODIUM CHLORIDE 0.9% INJ SCH (10:00)
[2019-10-08] MEDS: XOPENEX NEB INH SCH (11:12)
--- NOTE | 2019-10-08 12:46 | HEMO/ONC PROGRESS NOTE ---
DATE: 10/08/2019 SUBJECTIVE: Ms. Reese is awake and sitting up in bed this morning. However, she is barely nodding her head to my questions. She does not seem to have the energy to speak. She has no appetite. She has general abdominal pain and weakness. Her right arm is significantly swollen, more so than the left. She is unable to walk at this point. She is short of breath with any exertion. OBJECTIVE: Vital Signs: Temperature 97.4 degrees, pulse rate 136, respiratory rate 8, blood pressure 97/76, and O2 saturation 96% on nasal cannula at 3 L. She is in 0/10 pain. PHYSICAL EXAMINATION: General: Chronically ill-appearing female that does not appear well. Cardiovascular: Tachycardic rate and rhythm. Respiratory: Coarse wheezing lung sounds to upper lungs. Gastrointestinal: Abdomen is soft, distended. Tender to palpation. Extremities: There is +1 pitting edema noted to her lower extremities. There is +2 pitting edema noted to the right arm. There is +1 pitting edema noted to the left arm. LABORATORY: WBCs 25.6, hemoglobin 10.6, hematocrit 34.1, and platelet count 146,000. Sodium 126, creatinine 1.1, calcium 8.2, and plasma lactate 3.9. IMAGING: Pulmonary arteriogram shows negative for pulmonary embolism, moderate right and small left pleural effusion. Ascites and diffuse esophagitis. Chest x-ray shows worsening opacification of the right lung base. ASSESSMENT AND PLAN: 1. Metastatic pancreatic adenocarcinoma. She has been declining over the past week. Her prognosis remains poor. 2. Hyponatremia and dehydration. The patient's sodium continues to be low. Continue medical management, appears to be affecting her mentation. She is slow to respond and has some confusion as noted by her . 3. Right lower lobe pneumonia. The patient is being treated with antibiotics per medical management. 4. Chemotherapy-induced anemia. The patient has been on Procrit in the office. Her anemia remains mild, and stable while she has been in the hospital. Transfuse as needed for hemoglobin less than 8. 5. Pain management. Continue to provide the patient pain management as necessary. 6. Weakness and deconditioning. The patient needs to be encouraged to eat. She needs to try to be offered snacks or protein shakes as available. She should also be assisted to get out of bed if she wishes. 7. Deep venous thrombosis prophylaxis. The patient is on Lovenox. Dictated by ANA Wheatley for Fritz Norris MD She has terribly declined since admission and over the past week. I had a lengthy discussion with the family. DNR-1. Agreeable with hospice. She is very sick and inpatient hospice is appropriate. Comfort measures only. Fritz Norris MD cc: Fritz Norris MD [facility]
[2019-10-08] MEDS ORDERED: MYCOSTATIN SUSP PO SCH (13:00)
[2019-10-08] MEDS ORDERED: MORPHINE IV PRN (14:09)
[2019-10-08] MEDS ORDERED: TYLENOL PR PRN (14:26)
[2019-10-08] MEDS ORDERED: ATROPINE 1 % OPHTH SOLN SL PRN (14:33)
[2019-10-08] MEDS ORDERED: NS NEB INH SCH (16:00)
[2019-10-08] MEDS ORDERED: DUONEB (A & A) INH PRN (17:40)
[2019-10-08] MEDS: ATIVAN IV PRN (19:57)
--- NOTE | 2019-10-08 21:34 | CONSULTATION ---
DATE OF CONSULTATION: 10/08/2019 CHIEF COMPLAINT: Weakness. HISTORY OF PRESENT ILLNESS: This is a 63-year-old female with a history of metastatic pancreatic cancer, COPD, and GERD, admitted due to possible dehydration. Recent diagnostic imaging revealed the possibility of pneumonia. Pulmonary arteriogram impression revealed negative for pulmonary embolism, moderate right and small left pleural effusions, ascites and diffuse esophagitis. PAST MEDICAL HISTORY: Metastatic pancreatic cancer, COPD, and GERD. PAST SURGICAL HISTORY: Hysterectomy, appendectomy, cholecystectomy, cervical fusion and thyroidectomy. ALLERGIES: No known drug allergies. CURRENT MEDICATIONS: Albuterol inhaler 3 times a day, alprazolam 0.25 mg p.o. daily, morphine IR 50 mg p.o. b.i.d. SOCIAL HISTORY: No history of smoking, alcohol or illicit drug use. FAMILY HISTORY: None. REVIEW OF SYSTEMS: A 10-point review of systems was obtained, and the pertinent points are listed within the HPI. Otherwise noncontributory. PHYSICAL EXAMINATION: GENERAL: Family at bedside. The patient appears chronically ill. Extreme weakness noted. VITAL SIGNS: Temperature 99.1 axillary, pulse rate 127, respiratory rate 12, blood pressure 97/43, 02 saturation 97% on nasal cannula with O2 at 3 L. HEENT: Atraumatic, normocephalic. PERRLA. NECK: Supple. No masses. Trachea midline. CHEST: Decreased entry. Bibasilar rales. CARDIOVASCULAR: Regular rate and rhythm. ABDOMEN: Soft with positive bowel sounds. EXTREMITIES: With edema noted, +3 in lower extremities . NEUROLOGIC: She is awake. LABORATORY DATA: White blood cells 25.60, red blood cells 3.75, hemoglobin 10.6, hematocrit 34.1. Sodium 126, potassium 5.0, chloride 92, carbon dioxide 19, BUN 27, creatinine 1.1, glucose 110, calcium 8.2. Plasma lactate 4.1. DIAGNOSTIC DATA: Recent chest x-ray on 10/07/2019 revealed low lung volumes and worsening opacification of the right lung base. ASSESSMENT/PLAN: 1. Pneumonia. 2. Dehydration. 3. Metastatic pancreatic cancer. Dr. Jr lewis. 4. Hyponatremia. 5. Continue antibiotics as prescribed, and will continue to monitor arterial blood gases and electrolytes. 6. Continue deep venous thrombosis prophylaxis with sequential compression devices. 7. Will continue to follow and reassess and make further recommendations based on the patient's clinical course. Time spent with patient was 31 minutes. Thank you for the courtesy of this consult. Dictated by ANA Cleaning for Gilma Hsu MD cc: ANA Cleaning MD
[2019-10-08] MEDS ORDERED: VANCOMYCIN 1,600 MG in NS 250 ML IV SCH (22:00)
[2019-10-09] MEDS: ATIVAN IV PRN ×3 (03:38→14:07)
[2019-10-09 12:32] VITALS: BP 75/61
--- NOTE | 2019-10-12 17:08 | Extremity Venous Study ---
PROCEDURE NAME: Venous U/S Right Arm - 10/07/2019 RIGHT UPPER EXTREMITY VENOUS DUPLEX: REFERRING PHYSICIAN: Dr. Reich. READING PHYSICIAN: Dr. Rebollar. SHIPFITTER HELPER: Prema. INDICATION: Right arm swelling, cancer. FINDINGS: The deep and superficial veins of the right upper extremity were imaged throughout their course. They are compressible, patent without thrombus. INTERPRETATION: No DVT or SVT of the right upper extremity. cc: MD Saroj Peraza MD
--- NOTE | 2019-10-28 13:44 | DISCHARGE SUMMARY ---
ADMISSION DATE: 10/05/2019 DISCHARGE DATE: 10/09/2019 HOSPITAL COURSE: Pneumonia, dehydration, metastatic pancreatic cancer, hyponatremia, right lower lobe pneumonia. The patient also had metastatic pancreatic adenocarcinoma. Briefly, the patient was admitted on the with initial dehydration, metastatic pancreatic cancer, hyponatremia. She was placed on antibiotics, but did not really improve. Unfortunately, she was status post Taxotere. She had hyponatremia. She had pain issues, weakness, deconditioning. Unfortunately, she developed worsening respiratory failure, which I am not entirely sure was due to pneumonia versus just her cancer. Her pulmonary arteriogram showed pleural effusions. No PE, ascites, esophagitis. There were plans initially to consider possible thoracentesis, but as she progressively got worse Dr. Norris discussed with the family, felt she was declining, and she was made DNR and transferred to inpatient hospice care. This was on the and then patient I think on the . That notation is separate; looks like maybe she on the . DISCHARGE MEDICATION: She was transferred to IV medications, comfort measure medications. TIME SPENT: 32 minute discharge. cc: Saroj Reich MD
== END 2019-10-09 15:05 | disposition hospice, inpatient (51) | DRG 871 ==
LOC: ED 17:31 → EDIPHOLD 10-06 00:52 → SUATTDRO 10-06 00:52 → EDIPHOLD 10-06 09:23 → 3N 10-06 14:23 → 2N 10-07 19:24 → 3N 10-08 17:20
PROVIDERS: ATTEND Internal Medicine

== ENCOUNTER 2019-10-09 15:06 | Inpatient (IN) ==
[2019-10-09] MEDS ORDERED: ZOFRAN IV PRN (16:25)
[2019-10-09] MEDS ORDERED: TYLENOL PR PRN (16:25)
[2019-10-09] MEDS ORDERED: DURAGESIC 12 MICROGM/HR PATCH TD SCH (16:30)
[2019-10-09] MEDS ORDERED: TRANSDERM-SCOP TD SCH (16:30)
[2019-10-09] MEDS: MORPHINE IV PRN ×6 (16:38→22:55)
[2019-10-09] MEDS: ATIVAN IV PRN ×6 (16:39→22:56)
[2019-10-09] MEDS: ATROPINE 1 % OPHTH SOLN SL PRN (16:57)
--- NOTE | 2019-10-09 18:11 | PROGRESS NOTE ---
DATE: 10/09/2019 SUBJECTIVE: Josiane Reese has been converted to hospice. We are going to continue to monitor her closely. Her prognosis I think is fairly poor. She has been having secretions. LABORATORY DATA: No labs today problem. ASSESSMENT AND PLAN: Metastatic pancreatic cancer with malignant effusion and progressive respiratory failure. We are going to continue pain control. She is on morphine and Ativan. I will add a fentanyl patch because she is usually on 30 mg of MS Contin b.i.d. with morphine p.o., which she cannot take right now. We will continue comfort care measures. She is on inpatient hospice service. We will continue to follow with you. cc: Saroj Reich MD
[2019-10-10] MEDS: ATIVAN IV PRN ×17 (00:08→23:00)
[2019-10-10] MEDS: MORPHINE IV PRN ×17 (00:08→23:00)
[2019-10-10] MEDS: ATROPINE 1 % OPHTH SOLN SL PRN (13:53)
--- NOTE | 2019-10-10 18:22 | PROGRESS NOTE ---
DATE: 10/10/2019 SUBJECTIVE: She is unresponsive. OBJECTIVE: Blood pressures been in the 70s over 40s, heart rate 120, temperature 97.6 degrees.Cardiovascular: Regular rate and rhythm. Pulmonary: Diffuse rhonchi. No wheezing. GI: Soft, nontender. No labs. PROBLEMS: Metastatic pancreatic cancer with a malignant pleural effusion and progressive respiratory failure. We will continue comfort care measures. Family was counseled. The patient's is imminent I think probably in the next 12 to 24 hours. cc: Saroj Reich MD
[2019-10-11] MEDS: ATIVAN IV PRN ×10 (00:05→09:39)
[2019-10-11] MEDS: MORPHINE IV PRN ×10 (00:05→09:39)
[2019-10-11] MEDS: ATROPINE 1 % OPHTH SOLN SL PRN ×3 (01:03→08:23)
[2019-10-11 07:48] VITALS: BP 53/31
--- NOTE | 2019-10-11 19:18 | DISCHARGE SUMMARY ---
ADMISSION DATE: 10/09/2019 DISCHARGE DATE: 10/11/2019 Note DISCHARGE DIAGNOSES: 1. Metastatic pancreatic cancer. 2. Malignant pleural effusion. 3. Acute on chronic respiratory failure. CONSULTATIONS: 1. Dr. Fritz Norris, Heme-Onc. 2. Dr. Gilma Hsu, Pulmonary. SUMMARY: This is a 63-year-old female with metastatic pancreatic cancer, which I think is recurrent. She was undergoing palliative chemotherapy. She was felt to have pneumonia on admission. She was placed on IV antibiotics, breathing treatments. Dr. Norris was consulted. She actually was on treatment for Taxotere. Prognosis was poor. She had been declining over the last week. She was anemic. She was maintained on her pain medications. Pulmonary arteriogram showed no PE but a moderate right and small left pleural effusion and ascites and diffuse esophagitis. Plans were made for possible thoracentesis. However, she continued to clinically worsen. She was confused. After discussion with Dr. Norris, they decided to pursue inpatient hospice and patient was made DNR. She was admitted to hospice on the and was maintained on comfort care measures. We did initiate fentanyl and scopolamine because she was not able take in her p.o. medications. She continued to deteriorate. Her vital signs this morning, heart rate 53/31, heart rate of 112, respiratory 15. 49% saturations. The patient around 11:58. Hospice was made aware. A 32-minute discharge. cc: Saroj Reich MD
== END 2019-10-11 10:46 | disposition expired | DRG 435 ==
LOC: 3N 15:06
PROVIDERS: ATTEND Internal Medicine